=== PATIENT | female | born 1970 | race African-American/Black ===

== ENCOUNTER 2017-07-29 12:45 | Emergency (ER) | payer MEDICARE, MEDICAID ==
[~2017-07-29] VITALS: Ht 401.3 cm; Wt 110.0 kg
[2017-07-29 13:23] VITALS: BP 164/89
== END 2017-07-29 15:45 | disposition home or self-care (01) ==
LOC: ER 14:30
DX: M54.5 Low back pain (principal); F32.9 Major depressive disorder, single episode, unspecified
CPT/HCPCS: 99282

== ENCOUNTER 2019-05-22 10:19 | Emergency (ER) | payer MEDICARE, MEDICAID ==
[~2019-05-22] VITALS: Ht 175.3 cm; Wt 100.0 kg
[2019-05-22 11:15] VITALS: BP 174/89
== END 2019-05-22 12:40 | disposition home or self-care (01) ==
LOC: ER 10:19
DX: J06.9 Acute upper respiratory infection, unspecified (principal); M94.0 Chondrocostal junction syndrome [Tietze]; R03.0 Elevated blood-pressure reading, without diagnosis of hypertension
CPT/HCPCS: 71045; 81025; 99283

== ENCOUNTER 2019-07-14 12:33 | Emergency (ER) | payer MEDICARE, MEDICAID ==
[~2019-07-14] VITALS: Ht 175.3 cm; Wt 100.0 kg
[2019-07-14 13:58] VITALS: BP 148/82
== END 2019-07-14 13:55 | disposition home or self-care (01) ==
LOC: ER 12:33
DX: J06.9 Acute upper respiratory infection, unspecified (principal)
CPT/HCPCS: 99282

== ENCOUNTER 2025-04-07 10:52 | Emergency (ER) | payer MEDICARE, MEDICAID ==
[~2025-04-07] VITALS: Ht 172.7 cm; Wt 91.0 kg
[2025-04-07 11:05] VITALS: O2SAT 99
[2025-04-07 12:21] LABS: HEMATOCRIT. 33.6 % (36.0-48.0); HEMOGLOBIN. 10.9 g/dL (12.0-16.0); MEAN PLATELET VOLUME 8.3 fl (7.4-10.4); PLATELET 222 x1000/uL (130-400); RED BLOOD CELL COUNT 4.12 mill/uL (4.2-5.4); RED CELL DISTRIBUTION WIDTH 17.6 % (11.6-14.6)
[2025-04-07 12:31] LABS: CREATININE 1.0 mg/dL (0.6-1.0); UREA NITROGEN BLOOD 11 mg/dL (9-23)
[2025-04-07 12:44] LABS: BAND% 3.0 % (1.0-6.0); LYMPHOCYTES % MANUAL 18.0 % (20.0-60.0); MONOCYTES % MANUAL 19.0 % (2.0-8.0); NEUTROPHILS % MANUAL 60.0 % (45.0-75.0); PLATELET ESTIMATE NORMAL
[2025-04-07 13:03] VITALS: BP 162/86; PULSE 88; RESP 12; TEMP 37; O2SAT 100
[2025-04-07 17:21] LABS: INFLUENZA TYPE A Presumptive Negative (Pres. Neg.); INFLUENZA TYPE B Presumptive Negative (Pres. Neg.)
[2025-04-07 17:22] LABS: RESPIRATORY SYNCYTIAL VIRUS Not Detected (Not Detectd)
== END 2025-04-07 13:03 | disposition home or self-care (01) ==
LOC: ER 10:52 → CANBEDREQ 13:13
DX: U07.1 COVID-19 (principal); J06.9 Acute upper respiratory infection, unspecified
CPT/HCPCS: 36415; 71045; 80048; 82550; 85025; 87420; 87426; 87804; 99284